=== PATIENT | male | born 1970 | race Caucasian/White ===

== ENCOUNTER 2023-03-16 10:22 | Emergency (ER) | payer OTHER ==
[~2023-03-16] VITALS: Ht 172.7 cm; Wt 86.2 kg
[~2023-03-16 10:22] MED LIST: DIOVAN HCT 80-11 TAB; DIOVAN40 MG PO
== END 2023-03-16 13:36 | disposition home or self-care (01) ==
LOC: ER 10:22
DX: T78.1XXA Other adverse food reactions, not elsewhere classified, initial encounter (principal); X58.XXXA Exposure to other specified factors, initial encounter; Z88.6 Allergy status to analgesic agent; Z88.8 Allergy status to other drugs, medicaments and biological substances; I10 Essential (primary) hypertension